=== PATIENT | female | born 1955 | race Caucasian/White ===

== ENCOUNTER 2016-10-05 18:21 | Inpatient (IN) | payer MEDICARE ==
[~2016-10-05] VITALS: Ht 172.7 cm; Wt 80.6 kg
--- NOTE | ~2016-10-05 | HP ---
Unit #: [id number] #: [id number] Patient: NORM MCKEON [id number] [facility] [address] [place], [place] [address] [id number] I MR#: [id number] NAME: NORM MCKEON ROOM: 578 Age: 61 Sex: F Admission Date: 10/05/2016 : 1955 Attending Physician: Kari Napoles M.D. Primary Care Physician: Ean Martin M.D. HISTORY AND PHYSICAL CHIEF COMPLAINT Shortness of breath on exertion, weakness and dark stool. HISTORY OF PRESENT ILLNESS This is a 60-year-old, very pleasant lady, who has a past medical history of AV malformation, history of esophagitis, gastritis, hypertension, depression and anemia. She presented to the emergency room with a chief complaint of having progressive generalized weakness and shortness of breath on exertion for the last few days. She said she has also had two dark stools yesterday and today. She had Hemoccult positive in the emergency room. She was on workup found to have hemoglobin of 6.4 and hematocrit 20 and has eventually been admitted for further workup and evaluation. She denies chest pain. She denies nausea, vomiting, abdominal pain, fever or any other complaint. PAST MEDICAL HISTORY 1. History of hypertension. 2. History of AV malformation. She had EGD on 12/23/2015 which showed multiple small 1-2 mm AV malformations, at least 10 at the proximal jejunum, mild to moderate gastritis and several Barry ulcers and gastric ulcers and hiatal hernia/esophagitis. 3. History of hypertension. 4. Depression. 5. Anemia. PAST SURGICAL HISTORY 1. History of . 2. History of breast augmentation. 3. EGD. SOCIAL HISTORY She is a retired nurse. She is currently smoking. She said she smokes one pack per week. She denies alcohol. Denies illicit drug use. FAMILY HISTORY Father with a history of testicular cancer. Mother with hypertension. HOME MEDICATIONS 1. Atenolol 25 mg daily. 2. Lisinopril/hydrochlorothiazide 20/25 mg daily. 3. Paxil 40 mg daily. 4. Multivitamin daily. 5. B12 monthly. 6. Iron tablets. Unit #: [id number] #: [id number] Patient: NORM MCKEON 7. Omeprazole 20 mg b.i.d. 8. Ativan. 9. Low-dose estrogen. REVIEW OF SYSTEMS Negative except as per history of present illness. PHYSICAL EXAMINATION GENERAL: The patient is a 61-year-old female lying in the bed comfortably. Currently not in any distress. She is alert, awake and oriented times three. VITALS: Currently temperature 98.3, heart rate 95, respiratory rate 18, blood pressure 156/76, oxygen 90% on room air. HEENT: Pupils equal and reactive to light and accommodation. Head is normocephalic, atraumatic. Conjunctivae pale. NECK: Supple. No jugular venous distension. No thyromegaly. HEART: S1 and S2. Irregular rate and rhythm. ABDOMEN: Soft, nontender and nondistended. Bowel sounds positive. EXTREMITIES: Inspection normal. No cyanosis, clubbing or edema. NEUROLOGIC: No focal neurologic deficits. Cranial nerves II through XII intact. Power 5/5 both sides. DIAGNOSTIC STUDIES LABORATORY: White blood cell count 6, hemoglobin 6.4, hematocrit 20.7, platelets 400. Chemistry, sodium 140, potassium 3.7, chloride 110, CO2 25, glucose 105, BUN 14, creatinine 0.5. LFTs within normal limits. INR 1. ASSESSMENT/PLAN 1. GI bleed with symptomatic anemia with a history of AV malformation and EGD on 12/23/2015 with AV malformation in the proximal jejunum, mild gastritis, gastric ulcer, esophagitis. Will start the patient on IV Protonix and clear liquid diet. Type and cross. Transfuse two units. Ask GI doctor, Dr. Nguyen, to see. 2. History of hypertension. 3. Depression. 4. Anemia. 5. DVT prophylaxis. Will pale the patient on SCDs. Dictated by Doyle Zhang TD: 10/06/2016 07:15 JOB #: [id number] Unit #: [id number] #: [id number] Patient: NORM MCKEON HISTORY AND PHYSICAL Page 1 of 1 X X HISTORY AND PHYSICAL
--- NOTE | ~2016-10-05 | DS ---
Unit #: [id number] #: [id number] Patient: NORM MCKEON [id number] [id number] [facility]. [place], [place] [address] [id number] I MR#: [id number] NAME: NORM MCKEON ROOM: 578 Age: 61 Sex: F Admission Date: 10/05/2016 : 1955 Discharge Date: Attending Physician: Ivy Valencia M.D. Primary Care Physician: Ean Martin M.D. DISCHARGE SUMMARY DISCHARGE DIAGNOSES 1. Acute on chronic blood loss anemia. 2. Gastrointestinal bleed with history of arteriovenous malformation. 3. Symptomatic anemia. 4. History of mild gastritis and gastric ulcer and esophagitis. 5. Hypertension. 6. Depression. CONSULTATION Dr. Nguyen. PROCEDURE Patient had EGD which shows esophagitis grade B along with small hiatal hernia, multiple AVMs in the proximal jejunum. DIAGNOSTIC STUDIES LABORATORY: Creatinine 0.6. Hemoglobin 9.1. IMAGING: Chest x-ray normal. ALLERGIES None. DISCHARGE MEDICATIONS 1. Fioricet one tablet p.o. b.i.d. 2. Paxil 40 daily. 3. Trazodone 50 at bedtime. 4. BuSpar 5 mg p.o. three times daily. 5. Ativan 0.5 mg at bedtime. 6. Tenormin 25 p.o. daily. 7. Hydrochlorothiazide 25 daily. 8. Lisinopril 20 daily. 9. Iron with B complex one tablet three times daily. 10. Multivitamin one tablet daily. 11. Protonix 40 p.o. b.i.d. 12. Folic acid 20 mg p.o. daily. HOSPITALIZATION COURSE A 61 year old admitted because of shortness of breath. Acute on chronic blood loss anemia: Patient received blood transfusion. Currently, hemoglobin 9.1. Patient had EGD which showed above findings. Patient is seen by Dr. Nguyen and Dr. Martin. Patient receiving IV iron also. Patient will be discharged home, okay per Dr. Nguyen and Dr. Martin. Unit #: [id number] #: [id number] Patient: NORM MCKEON Acute GI bleed, lower: Patient had EGD which shows AVM. Hypertension: Well controlled. DISPOSITION The patient will be discharged home. FOLLOWUP 1. Follow with family physician in one week time. 2. Follow with Dr. Nguyen in two to three weeks' time. Dictated by... Doyle King TD: 10/07/2016 14:20 JOB #: [id number] DISCHARGE SUMMARY Page 1 of 1 X Ivy Valencia MD X DISCHARGE SUMMARY
--- NOTE | ~2016-10-05 | CR72 ---
[facility] A Service of [facility] & [facility] RADIOLOGY TEXT RESULTS PATIENT: NORM MCKEON LOCATION: [facility] 578-01 : [birth year] UNIT #: [id number] AGE: [address]: Ivy Valencia MD SEX: F ORDER DR: [id number] [facility] [address] [place], [place] [address] [id number] I MR#: [id number] Acc #: [id number] NAME: NORM MCKEON : 1955 SEX: F STUDY DATE/TIME: 10/05/2016 19:11 UNIT: [facility] ROOM: 8 STUDY DESCRIPTION: CR Chest Single View Portable Attending Physician: Kari Napoles M.D. Ordering Physician: Navneet Castle M.D. Primary Care Physician: Ean Martin M.D. MEDICAL IMAGING REPORT This report is preliminary unless electronic signature is present EXAM Portable chest, 10/05/2016 HISTORY 61-year-old female with shortness of air and weakness beginning yesterday. COMPARISON Chest, 01/05/2016 FINDINGS Frontal chest demonstrates clear lungs. No pleural effusion or pneumothorax. Heart size and mediastinum are normal. Pulmonary vasculature normal. IMPRESSION No acute cardiopulmonary findings. Dictated by... Juan Valdes M.D. THIS IS AN ELECTRONICALLY VERIFIED REPORT Juan Valdes M.D. at 10/07/2016 10:50 AM SARANYA/andrea TD: 10/06/2016 19:24 JOB #: [id number] MEDICAL IMAGING REPORT Page 1 of 1 COPY
--- NOTE | ~2016-10-05 | CO ---
Unit #: [id number] #: [id number] Patient: NORM VEGA [id number] [facility]. [place], [place] [address] [id number] I MR#: [id number] NAME: NORM VEGA ROOM: 578 Age: 61 Sex: F Admission Date: 10/05/2016 : 1955 Attending Physician: Ivy Valencia M.D. Primary Care Physician: Ean Martin M.D. Consultation Date: 10/06/2016 CONSULTATION REPORT PRIMARY CARE PHYSICIAN Dr. Ean Martin. REASON FOR CONSULTATION GI bleeding, anemia. HISTORY OF PRESENTING ILLNESS Ms. Vega is a 61-year-old pleasant lady. She has had history of chronic blood loss related anemia, multiple AVMs have been found in the small bowel. She also has a history of hypertension and depression. She presented yesterday with complaints of generalized weakness, shortness, she has been having dark stools for 3 days now. She was Hemoccult positive in the emergency room. She has no hematemesis, abdominal pain, fever, or chills. Her hemoglobin on arrival was 6.4. PAST MEDICAL HISTORY Significant for multiple arteriovenous malformations, previous EGD showed AVMs that were cauterized. She also has a double balloon enteroscopy at in March and multiple other AVMs were seen and cauterized and clipped. History of hypertension, history of depression, she is status post . SOCIAL HISTORY She is a retired nurse. Smoker. Denies alcohol or drug abuse. FAMILY HISTORY Noncontributory. MEDICATIONS At home include iron pills, omeprazole, B12, Paxil, atenolol. REVIEW OF SYSTEMS Complete 12-point review of systems was done, which was negative other than as mentioned above. PHYSICAL EXAMINATION VITAL SIGNS: Stable, afebrile. GENERAL: No acute distress. HEENT: Pupils equal and reactive. Sclerae anicteric. Oral mucosa moist. NECK: No JVD. No lymphadenopathy. CHEST: Clear to auscultation bilaterally. CARDIOVASCULAR: Regular rate and rhythm. No murmurs. ABDOMEN: Soft, nontender, and nondistended. Bowel sounds are present. EXTREMITIES: Without clubbing, cyanosis, or edema. Unit #: [id number] #: [id number] Patient: NORM VEGA NEUROLOGIC: Grossly intact. No sensory or motor deficits. DIAGNOSTIC STUDIES LABORATORY RESULTS: Hemoglobin of 6.4, otherwise unremarkable. ASSESSMENT AND PLAN The patient with recurrent gastrointestinal bleeding, possibly from arteriovenous malformations in the small bowel. We will plan on doing an EGD and enteroscopy. At this time, we will transfuse her with packed red blood cells and also keep her on PPIs for now. We will watch H and H closely and transfuse further if needed. Risks and benefits of the procedure were discussed with the patient and she is agreeable for the same. 1. Anemia as above. 2. Hypertension. 3. Depression. Thank you, Dr. Jimenez, for this interesting consult. We will follow along. Dictated by... Doyle Kenny/halley TD: 10/07/2016 13:24 JOB #: [id number] CONSULTATION REPORT Page 1 of 1 X Efren Nguyen MD X CONSULTATION REPORT
--- NOTE | ~2016-10-05 | EKG ---
PATIENT: NORM MCKEON UNIT #: [id number] Ventricular Rate: 83 BPM Atrial Rate: 83 BPM P-R Interval: 134 ms QRS Duration: 78 ms Q-T Interval: 404 ms QTC Calculation(Bezet): 474 ms P [place]: 31 degrees Calculated R [place]: 44 degrees Calculated T [place]: 58 degrees Diagnosis Line: Normal sinus rhythm with sinus arrhythmia Diagnosis Line: Normal ECG Diagnosis Line: When compared with ECG of 05-JAN-2016 00:35, Diagnosis Line: Premature atrial complexes are no longer Present Diagnosis Line: Confirmed by JANETTE INGRAM MD ([id number]) on Diagnosis Line: 10/07/2016 4:54:11 PM INTERPRETING MD: USMAN
--- NOTE | ~2016-10-05 | OR ---
Unit #: [id number] #: [id number] Patient: NORM MCKEON [id number] [facility] [address] [place], [place] [address] [id number] I MR#: [id number] NAME: NORM MCKEON ROOM: 578 Date of Procedure: 10/06/2016 Admission Date: 10/05/2016 Surgeon: Efren Nguyen M.D. : 1955 Attending Physician: Kari Napoles M.D. Primary Care Physician: Ean Martin M.D. OPERATIVE REPORT PROCEDURES PERFORMED Esophagogastroduodenoscopy to distal duodenum, enteroscopy with APC. INDICATIONS FOR PROCEDURE The patient with severe upper GI bleeding, anemia of acute blood loss, history of AVMs. MEDICATIONS Versed 10 mg and fentanyl 100 mcg IV. POSTOPERATIVE FINDINGS 1. Esophagitis LA grade B along with small hiatal hernia. 2. Normal stomach. 3. Normal duodenum and distal duodenum. 4. Proximal jejunum and multiple small AVMs at least 10 of them were seen and it was 50 to 60 cm and cauterized using APC. PLAN Continue to watch for any further bleeding. Transfuse as necessary. Continue PPI therapy. DESCRIPTION OF PROCEDURE The patient was explained of the procedure, risks, and benefits along with risks and benefits of anesthesia and sedation. She was brought to the endoscopy room. Conscious sedation was given with Versed and fentanyl, we used the colonoscope and EGD and push enteroscopy. The scope was lubricated, passed down the mouth into esophagus, stomach, duodenum and further up to at least 60 cm into the proximal jejunum. Multiple AVMs were seen. They were cauterized. No active bleeding was seen. The scope was then pulled back into the stomach. Findings as described. Gently, I decompressed the stomach and pulled it out of the patient's mouth. She tolerated it well. Dictated by... Doyle Kenny/halley TD: 10/06/2016 12:06 JOB #: [id number] Unit #: [id number] #: [id number] Patient: NORM MCKEON OPERATIVE REPORT Page 1 of 1 X Efren Nguyen MD PROCEDURE OPERATIVE NOTE
[~2016-10-05 18:21] MED LIST: ALPRAZOLAM PO; ATENOLOL PO; ATENOLOL25 MG PO; ATIVAN PO; ATIVAN0.5 M1 PO; BUSPAR30 MG PO; CAPOZIDE PO; CENTRUM COMPLE1 EACH PO; CLONIDINE HCL0.1 MG PO; CYANOCOBAL1000 MCG/1 INJ; DESYREL50 MG PO; FAMOTIDINE PO; FEOSOL PO; FOLIC ACID PO; FOLIC ACID20 MG PO; GERITOL PO; HCTZ PO; HYDROCHLOROTHIA25 MG PO; IRON1 TA1 PO; IRON325 ( 652 PO; LISINOPRIL20 MG PO; MACROBID100 MG PO; MULTI VITAMIN1 EACH PO; MULTIVITAMIN1 UDCAP PO; OMEPRAZOLE40 MG PO; PAXIL40 MG PO; PREMPRO 0.1 TAB 0.62 PO; PRILOSEC PO; PRILOSEC40 MG PO; PRINIVIL20 M1 PO; PROTONIX PO; SPIRONOLAC1 TAB 25/2 PO; TENORMIN25 M1; TENORMIN25 M1 PO; ULTRAM PO
[2016-10-05 19:54] LABS: BASOPHIL# 0.1 X10e3 (0-0.3); BASOPHIL% 1.2 % (0-2.5); EOSINOPHIL# 0.2 X10e3 (0-0.7); EOSINOPHIL% 2.5 % (0.0-7.0); HEMATOCRIT 20.7 % (35.0-45.0); LYMPHOCYTE# 0.8 X10e3 (1.0-3.5); LYMPHOCYTE% 12.2 % (17.0-45.0); MEAN CELL VOLUME 69.6 FL (83-96); MEAN CORPUSCULAR HEMOGLOBIN 21.5 PG (28-34); MEAN CORPUSCULAR HGB CONC 30.9 g/dL (30-36); MEAN PLATELET VOLUME 8.4 FL (6.5-11.5); MONOCYTE# 0.7 X10e3 (0-1.0); MONOCYTE% 11.1 % (3.0-12.0); NEUTROPHIL# 4.7 X10e3 (1.5-7.1); PLATELET COUNT 400 X10e3 (140-420); RED BLOOD COUNT 2.97 X10e (3.90-5.30); RED CELL DISTRIBUTION WIDTH 19.9 % (11.0-15.5); WHITE BLOOD COUNT 6.4 X10e3 (4.0-10.5)
[2016-10-05 20:00] LABS: DIFF IND YES; HEMOGLOBIN 6.4 gm/dL (12.0-16.0)
[2016-10-05 20:02] LABS: PARTIAL THROMBOPLASTIN TIME 23.1 SECONDS (23.5-31.3); PROTHROMBIN TIME (PATIENT) 10.6 SECONDS (10.0-11.7)
[2016-10-05 20:14] LABS: ANISOCYTOSIS MOD; PLATELET ESTIMATE NORMAL (NORMAL)
[2016-10-05 20:15] LABS: ALBUMIN SERUM 3.8 g/dL (3.5-5.0); ALKALINE PHOSPHATASE 77 U/L (32-92); ALT (SGPT) 19 U/L (10-40); AST (SGOT) 26 U/L (10-42); BILIRUBIN, DIRECT <0.1 mg/dL (0.0-0.2); BILIRUBIN,INDIRECT 0.3 mg/dL (0.0-0.9); BILIRUBIN,TOTAL 0.4 mg/dL (0.2-2.0); BLOOD UREA NITROGEN 14 mg/dL (9-23); CALCIUM SERUM 8.8 mg/dL (8.4-10.2); CARBON DIOXIDE 25 mmol/L (22-31); CHLORIDE 110 mmol/L (100-111); CREATININE SERUM 0.5 mg/dL (0.6-1.4); GLUCOSE FASTING 105 mg/dL (70-110); POIKILOCYTOSIS MOD; POTASSIUM 3.7 mmol/L (3.5-5.1); PROTEIN TOTAL SERUM 6.4 g/dL (6.0-8.3); SODIUM 140 mmol/L (135-145)
[2016-10-05] MEDS ORDERED: TENORMIN25 MG PO (20:47)
[2016-10-05] MEDS ORDERED: LISINOPRIL20 MG PO (20:48)
[2016-10-05] MEDS ORDERED: MULTIVITAMINS1 EAC2 PO (20:49)
[2016-10-05] MEDS ORDERED: PAXIL40 MG PO (20:49)
[2016-10-05] MEDS ORDERED: HYDROCHLOROTHIA25 MG PO (20:49)
[2016-10-05] MEDS ORDERED: PANTOPRAZOLE SO20 MG PO (20:51)
[2016-10-05] MEDS ORDERED: GERITOL PO (20:51)
[2016-10-05] MEDS ORDERED: ATIVAN0.5 MG PO (20:51)
[2016-10-05] MEDS ORDERED: BUSPAR5 MG PO (20:52)
[2016-10-05] MEDS ORDERED: DESYREL50 MG PO (20:52)
[2016-10-05] MEDS ORDERED: FOLIC ACID20 MG PO (20:53)
[2016-10-05] MEDS ORDERED: FIORICET 50-301 EACH PO (20:54)
[2016-10-06 11:24] LABS: BASOPHIL# 0.1 X10e3 (0-0.3); BASOPHIL% 1.7 % (0-2.5); EOSINOPHIL# 0.2 X10e3 (0-0.7); EOSINOPHIL% 4.5 % (0.0-7.0); HEMATOCRIT 27.9 % (35.0-45.0); LYMPHOCYTE# 0.6 X10e3 (1.0-3.5); LYMPHOCYTE% 11.6 % (17.0-45.0); MEAN CORPUSCULAR HEMOGLOBIN 23.1 PG (28-34); MEAN CORPUSCULAR HGB CONC 31.4 g/dL (30-36); MEAN PLATELET VOLUME 8.3 FL (6.5-11.5); MONOCYTE# 0.5 X10e3 (0-1.0); MONOCYTE% 10.2 % (3.0-12.0); NEUTROPHIL# 3.7 X10e3 (1.5-7.1); PLATELET COUNT 361 X10e3 (140-420); RED CELL DISTRIBUTION WIDTH 21.5 % (11.0-15.5); WHITE BLOOD COUNT 5.1 X10e3 (4.0-10.5)
[2016-10-06 11:26] LABS: DIFF IND NO; HEMOGLOBIN 8.8 gm/dL (12.0-16.0); MEAN CELL VOLUME 73.4 FL (83-96)
[2016-10-06 11:55] LABS: CALCIUM SERUM 8.3 mg/dL (8.4-10.2); CREATININE SERUM 0.5 mg/dL (0.6-1.4); POTASSIUM 3.7 mmol/L (3.5-5.1)
[2016-10-07 07:25] LABS: HEMATOCRIT 28.5 % (35.0-45.0); HEMOGLOBIN 9.1 gm/dL (12.0-16.0); MEAN CELL VOLUME 72.9 FL (83-96); MEAN CORPUSCULAR HEMOGLOBIN 23.1 PG (28-34); MEAN CORPUSCULAR HGB CONC 31.7 g/dL (30-36); MEAN PLATELET VOLUME 8.5 FL (6.5-11.5); RED BLOOD COUNT 3.92 X10e (3.90-5.30); RED CELL DISTRIBUTION WIDTH 22.6 % (11.0-15.5); WHITE BLOOD COUNT 7.2 X10e3 (4.0-10.5)
[2016-10-07 07:52] LABS: ALBUMIN SERUM 3.5 g/dL (3.5-5.0); BILIRUBIN,TOTAL 0.5 mg/dL (0.2-2.0); BUN/CREATININE RATIO 23.33; CALCIUM SERUM 8.6 mg/dL (8.4-10.2); CREATININE SERUM 0.6 mg/dL (0.6-1.4); PROTEIN TOTAL SERUM 5.9 g/dL (6.0-8.3)
== END 2016-10-07 21:00 | disposition home or self-care (01) | DRG 345 ==
LOC: CED 18:21 → CEDOF 20:45 → CED 22:34 → C5C 10-06 00:21 → CEDOF 10-06 00:21 → C5C 10-06 06:49
PROVIDERS: Emergency Medicine; Internal Medicine
PROC: 30233N1 Transfusion of Nonautologous Red Blood Cells into Peripheral Vein, Percutaneous Approach (ICD-10-PCS; 2016-10-05)
PROC: 0D5A8ZZ Destruction of Jejunum, Via Natural or Artificial Opening Endoscopic (ICD-10-PCS; principal; 2016-10-06 12:00)
DX: K55.21 Angiodysplasia of colon with hemorrhage (principal); D62 Acute posthemorrhagic anemia; I10 Essential (primary) hypertension; F32.9 Major depressive disorder, single episode, unspecified; F17.210 Nicotine dependence, cigarettes, uncomplicated; K20.9 Esophagitis, unspecified; K44.9 Diaphragmatic hernia without obstruction or gangrene
CPT/HCPCS: 36415; 71010; 80048; 80053; 80076; 85025; 85027; 85610; 85730; 86850; 86900; 86901; 86922; 93005; 99285; C9113; J0360; J2250; J2916; J3010; P9016